=== PATIENT | male | born 1985 | race Hispanic/Latino ===

== ENCOUNTER → 2022-06-02 | Outpatient (CLI) | payer OTHER ==
[2022-06-02 14:43] LABS: BASOPHILS % (AUTO) 0.6 % (0.0-5.0); EOSINOPHILS % (AUTO) 0.6 % (0.0-8.0); HEMATOCRIT 40.5 % (42-54); LYMPHOCYTES % (AUTO) 41.9 % (21.0-51.0); MEAN CORPUSCULAR HEMOGLOBIN 29.5 pg (27.0-33.0); MEAN CORPUSCULAR HGB CONC 33.1 g/dL (32.0-36.0); MONOCYTES % (AUTO) 12.1 % (3.0-13.0); NEUTROPHILS % (AUTO) 44.6 % (40.0-77.0); PLATELET COUNT (AUTO) 253 K/uL (130-400); RED BLOOD CELL COUNT(AUTO) 4.55 MIL/uL (4.50-6.20); RED CELL DISTRIBUTION WIDTH 12.7 % (11.0-15.5); WHITE BLOOD COUNT (AUTO) 4.7 K/uL (4.8-10.8)
[2022-06-02 14:48] LABS: APPEARANCE,URINE CLEAR (CLEAR); BILIRUBIN,URINE NEGATIVE (NEGATIVE); COLOR,URINE YELLOW (YELLOW); GLUCOSE, URINE (UA) NEGATIVE (NEGATIVE); KETONES,URINE NEGATIVE (NEGATIVE); LEUKOCYTE ESTERASE ,URINE NEGATIVE Leu/uL (NEGATIVE); NITRATE,URINE NEGATIVE (NEGATIVE); OCCULT BLOOD,URINE NEGATIVE (NEGATIVE); PH,URINE 5.5 (5.0-8.0); PROTEIN,URINE 20 mg/dL (NEGATIVE); UROBILINOGEN,URINE 0.2 mg/dL (0.2-1.0)
[2022-06-02 14:54] LABS: MUCUS,URINE FEW LPF (None Seen); SQUAMOUS EPITHELIAL CELL,UR RARE /HPF (0-2); WBC,URINE 0-1 /HPF (0-1)
[2022-06-02 15:12] LABS: ALANINE AMINOTRANSFERASE 29 U/L (12-78); ALBUMIN 4.3 g/dL (3.5-5.0); ASPARTATE AMINOTRANSFERASE 25 U/L (10-37); CARBON DIOXIDE 28 mmol/L (21-32); CHLORIDE 102 mmol/L (101-111); CHOLESTEROL 164 mg/dL (<200); GLOMERULAR FILTR. RATE CALC 99 mL/min (>90); GLUCOSE,RANDOM 95 mg/dL (70-105); HDL CHOLESTEROL 47 mg/dL (29-71); LDL DIRECT 107 mg/dL (0-99); POTASSIUM 4.9 mmol/L (3.5-5.1); SODIUM SERUM 136 mmol/L (136-145); THYROID STIMULATING HORMONE 0.46 uIU/mL (0.36-3.74); TOTAL PROTEIN, SERUM 7.4 g/dL (6.0-8.3); TRIGLYCERIDES 58 mg/dL (30-200); UREA NITROGEN, BLOOD 13 mg/dL (7-18)
[2022-06-02 15:15] LABS: CRP QUANTITATIVE < 2.00 mg/L (0.00-9.0)
[2022-06-02 15:46] LABS: ERYTHROCYTE SEDIMENTATION RATE 3 MM/HR (0-15)
== END | disposition home or self-care (01) ==
LOC: LAB 13:52
PROVIDERS: ATTEND Family Medicine
DX: R10.13 Epigastric pain (principal)
CPT/HCPCS: 36415; 80053; 80061; 81001; 83013; 84443; 85025; 85651; 86140

== ENCOUNTER 2023-01-26 14:17 | Emergency (ER) | payer OTHER ==
[~2023-01-26] VITALS: Ht 185.4 cm; Wt 88.5 kg
[2023-01-26 14:21] VITALS: BP 132/78; PULSE 84; RESP 18
== END 2023-01-26 17:03 | disposition home or self-care (01) ==
LOC: EDH 14:17
DX: S89.81XA Other specified injuries of right lower leg, initial encounter (principal); X58.XXXA Exposure to other specified factors, initial encounter; Y93.89 Activity, other specified; Y92.89 Other specified places as the place of occurrence of the external cause; Y99.8 Other external cause status
CPT/HCPCS: 73560

== ENCOUNTER → 2023-01-28 | Outpatient (CLI) | payer OTHER | END | disposition home or self-care (01) | LOC: RAH 14:41 | PROVIDERS: ATTEND Family Medicine | DX: S83.511A Sprain of anterior cruciate ligament of right knee, initial encounter (principal); M25.461 Effusion, right knee; X58.XXXA Exposure to other specified factors, initial encounter; Y93.89 Activity, other specified; Y92.89 Other specified places as the place of occurrence of the external cause; Y99.8 Other external cause status | CPT/HCPCS: 73721 ==

== ENCOUNTER → 2023-02-25 | Outpatient (CLI) | payer OTHER | END | disposition home or self-care (01) | LOC: RAH 10:30 | PROVIDERS: ATTEND Family Medicine | DX: M25.561 Pain in right knee (principal) | CPT/HCPCS: 73721 ==

== ENCOUNTER 2023-11-22 05:45 | Day surgery (SDC) | payer OTHER ==
[2023-11-22] VITALS (10 sets, daily range): BP systolic 99–127; BP diastolic 53–79; PULSE 61–73; RESP 15–18; TEMP 96.5–98.1
[~2023-11-22] VITALS: Ht 185.4 cm; Wt 86.2 kg
[2023-11-22] MEDS: 0.9%NACL 1000ML 1,000 ML IV ONE (06:45)
[2023-11-22] MEDS ORDERED: proPOFol 10 MG/ML 20ML VIAL IV ONE (06:53)
[2023-11-22] MEDS ORDERED: LIDOCAINE HCL 400MG/20ML VIAL ONE (06:55)
== END 2023-11-22 08:40 | disposition home or self-care (01) ==
LOC: ENDO 05:45 → DAH 05:45 → ENDO 08:40
PROVIDERS: ATTEND Internal Medicine Gastroenterology
DX: K59.00 Constipation, unspecified (principal); R14.0 Abdominal distension (gaseous); Q43.8 Other specified congenital malformations of intestine; Z79.899 Other long term (current) drug therapy
CPT/HCPCS: 45378; J3490; J7030 ×2; J2704; A4620; A4215; A4223; A7002; A4222; A4221; A4663; A4606

== ENCOUNTER 2024-04-15 17:26 | Emergency (ER) | payer OTHER ==
[~2024-04-15] VITALS: Ht 185.4 cm; Wt 83.9 kg
--- NOTE | 2024-04-15 18:29 | ERN ---
ED Note History of Present Illness Stated Complaint: FINGER INJURY Chief Complaint: Needle Stick Time Seen by MD: 17:42 Time Seen by Midlevel: 17:48 Dictation: Mr. Rebolledo is a 38-year-old male with no reported chronic health issues who presented to the emergency department for evaluation following needle stick. Patient is a employee of this hospital who states that at approximately 5:12 p.m. 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 He states he was pinching the skin of her upper arm to administer an insulin injection and the needle went through the patient's skin and into the pad of his left middle finger. 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 He denies any additional injury or concerns. Allergies: Coded Allergies: No Known Drug Allergies (Unverified Allergy, Unknown, 01/26/23) Home Meds No Active Prescriptions or Reported Meds Past Medical History Past Medical History: No Pertinent History Surgical History: None Social History: Negative RN Note Reviewed/Agreed w/PFSH: Yes Review of System Dictation REVIEW OF SYSTEMS: CONSTITUTIONAL: Patient denies fevers, chills, sweats and weight changes. EYES: Patient denies any visual symptoms. EARS, NOSE, AND THROAT: No difficulties with hearing. No symptoms of rhinitis or sore throat. CARDIOVASCULAR: Patient denies chest pains, palpitations, orthopnea and paroxysmal nocturnal dyspnea. RESPIRATORY: No dyspnea on exertion, no wheezing or cough. GI: No nausea, vomiting, diarrhea, constipation, abdominal pain, hematochezia or melena. : No urinary hesitancy or dribbling. No nocturia or urinary frequency. No abnormal urethral discharge. MUSCULOSKELETAL: No myalgias or arthralgias. NEUROLOGIC: No chronic headaches, no seizures. Patient denies numbness, tingling or weakness. PSYCHIATRIC: Patient denies problems with mood disturbance. No problems with anxiety. ENDOCRINE: No excessive urination or excessive thirst. DERMATOLOGIC: Patient has small puncture wound to pad of left index finger;29 gauge insulin syringe/needle Initial Vital Sign VS Vital Signs Date Time Temp Pulse Resp B/P (MAP) Pulse Ox O2 Delivery O2 Flow Rate FiO2 04/15/24 17:37 97.7 63 16 121/61 98 Room Air 04/15/24 18:39 0 21 Physical Exam Dictation Vital signs: Reviewed. Constitutional: No acute distress. Non-toxic appearing. Head/Face: Normocephalic, atraumatic. Eyes: Periorbital areas with no swelling, redness, or edema. Lids and lashes are normal. Conjunctival injection is absent. Sclera anicteric. Pupils equal, round, reactive to light. ENT: Pinnas intact and no signs of trauma or erythema. Ear canals clear and no discharge. TMs no erythema. No nasal discharge or bleeding noted. Oropharynx with no exudate, redness, swelling, masses, exudates, or evidence of obstruction. Uvula midline. Mucous membranes moist. Neck: Trachea midline, no masses palpated, and no cervical lymphadenopathy. No swelling. Supple, full range of motion. Chest/Axilla: No tenderness, no crepitus, no paradoxical movement, no retractions. Cardiovascular: Regular rate, regular rhythm, no murmur, no gallops. Symmetric pulses. No peripheral edema. Respiratory: Respirations even and unlabored. Lung sounds clear; no wheezes, rales or rhonchi. Gastrointestinal: Inspection is normal. No distention is appreciated. Bowel sounds are normal. No mass or organomegaly . There is no tenderness. No rebound. No rigidity. No voluntary or involuntary guarding. No Bowen's sign. Neurological: Normal speech, gross motor function intact, gross sensory function intact. No focal weakness/Paresthesia. Musculoskeletal/Extremities: All extremities have full range of motion, no pain or tenderness on palpation. Symmetric pulses. Integumentary: . Skin is normal color, warm and dry. Cap refill less than 3 seconds. Extremely small puncture wound from 29 gauge insulin syringe/needle to the pad of left middle finger Results (Laboratory/Radiology) Laboratory/Radiology Laboratory Tests Test 04/15/24 18:33 HIV (1&2) Antibody Non-Reactive (Negative) HIV P24 Antigen, Qualitative Non-Reactive (Negative) ED Course ED Course Orders Procedure Category Date Status Time Wound Care (Er) CPOE 04/15/24 Transmitted 17:42 Tetanus,Diphtheria PHA 04/15/24 Complete Tox [Adult] (Diphther 18:00 Hiv 1-2 W/Reflex To LAB 04/15/24 Complete Confirm 18:33 Hepatitis B Core Total LAB 04/15/24 In Process 18:33 Hepatitis B Surface LAB 04/15/24 In Process Antibody 18:33 Hepatitis C Ab LAB 04/15/24 In Process W/Reflex To Pcr 18:33 Current Medications Medications (Trade) Dose Ordered Sig/Ivan Route PRN Reason Start Time Stop Time Status Last Admin Dose Admin Tetanus/ Diphtheria Toxoids Adsorbed (DiphthERIA-teTANUS TOXOID [ADULT]/ DECAVAC) 0.5 ml ONCE ONCE IM 04/15/24 18:00 04/15/24 18:01 DC 04/15/24 18:35 Vital Signs Date Time Temp Pulse Resp B/P (MAP) Pulse Ox O2 Delivery O2 Flow Rate FiO2 04/15/24 18:39 98.1 60 16 120/60 100 Room Air* 0 21 04/15/24 17:37 97.7 63 16 121/61 98 Room Air Uneventful ED course. Patient received wound care to the left middle finger as well as updated tetanus. He has full range of motion to that finger and no additional injury noted. Laboratory tests drawn per hospital protocol. Patient will continue with follow up at [facility] Medical Decision Making MDM MDM: Differential diagnosis: Needlestick injury Rationale: Tests considered and ordered secondary to shared decision making include: Previous outside records reviewed: Old ER visits. Risk of complication and/or morbidity or mortality of patient management: None Medications-Per medication reconciliation Need for hospitalization: Patient does not meet criteria for hospitalization. Need for emergency major/minor surgery: No There are no social concerns with this patient. Prescription drug management: And/a Prescriptions will include symptomatic care Patient's prior external medical records from other ER visits were reviewed by me as indicated. Prior testing and results from previous visits were reviewed. Prior tests were taken into account with medical decision making and resource utilization, independent historian/historians were used to obtain complete medical history. I independently interpreted the test that were performed, results were reviewed by me and considered findings on radiology if ordered. Medical management and examination interpretation discussions were had by me with other qualified healthcare professionals as indicated for the patient's care. DX & DISP Disposition: Discharge Departure Impression: Primary Impression: Needle stick injury of finger of left hand Additional Impression: Needle stick injury Condition: Stable Scripts No Active Prescriptions or Reported Meds Additional Instructions: Continue to cleanse wound well with soap and water. Continue practice universal precautions. Follow up with [facility] ([place]) [phone]. Return to the Emergency Department for any worsening of symptoms or concerns Referrals: CLAY LUONG MD (PCP) Time of Disposition: 18:29 NILSON SORIANO NP Apr 15, 2024 18:29 ARACELIS SULLIVAN MD Apr 16, 2024 15:48
[2024-04-15] MEDS: teTANUS/diphthERIA TOXOID [ADULT] 0.5 ML VIAL IM ONE (18:35)
[2024-04-15 18:39] VITALS: BP 120/60; PULSE 60; RESP 16; TEMP 98.1; O2SAT 100
[2024-04-15 19:22] LABS: HIV 1&2 ANTIBODY Non-Reactive (Negative); HIV-1 p24 Antigen Non-Reactive (Negative)
[2024-04-16 22:01] LABS: HEPATITIS B SURFACE ANTIBODY Positive (Reactive)
[2024-04-16 22:02] LABS: HEPATITIS C ANTIBODY Non-Reactive (Nonreactive)
[2024-04-16 22:53] LABS: HEPATITIS B CORE AB TOTAL Reactive (Nonreactive)
== END 2024-04-15 18:54 | disposition home or self-care (01) ==
LOC: EDH 17:26
DX: S61.233A Puncture wound without foreign body of left middle finger without damage to nail, initial encounter (principal); Z77.21 Contact with and (suspected) exposure to potentially hazardous body fluids; W46.0XXA Contact with hypodermic needle, initial encounter; Y93.89 Activity, other specified; Y92.89 Other specified places as the place of occurrence of the external cause; Y99.8 Other external cause status
CPT/HCPCS: 36415; 86701; 86704; 86706; 86803; 87390; 90471; 90714; 99283